=== PATIENT | female | born 1960 | race Caucasian/White ===

== ENCOUNTER 2018-11-30 14:15 | Day surgery (SDC) | payer OTHER ==
--- NOTE | 2018-11-22 23:30 | PREOPHP ---
DATE OF ADMISSION: 11/30/2018 The patient is coming on Monday, the , for a D and C with hysteroscopy. HISTORY OF PRESENT ILLNESS: This is a 58-year-old female, 5, para 4 with abortions 1. This patient was referred to me recently for vaginal bleeding, spotting, pelvic pressure, pelvic pain, hyp ertensive with no diabetes, with vaginal dryness and history of depression. This patient was evaluat ed and was advised for a fractional D and C and hysteroscopy for the possibility of endometrial cance r due to morbid obesity and a thick endometrium in the ultrasound. PAST MEDICAL HISTORY: The patient has a history of an umbilical hernia. She had a lap ryder. She h ad a breast biopsy which was negative. MEDICATIONS: She is on: 1. Hydrochlorothiazide. 2. Celexa. 3. Lisinopril. 4. Lopid. 5. Valtrex. 6. Naproxen. 7. Vitamins. DIAGNOSTIC STUDIES: The patient's Pap smear was normal and the ultrasound revealed that the uterus w as heterogeneous with fibroids, and there was endometrium that was normal and ovaries that were not v isualized. REVIEW OF SYSTEMS: Negative for cardiovascular problem except for hypertension. Lung disease negati ve. GI negative. Endocrine disease negative. No other pertinent findings in the review of systems. ALLERGIES: SHE IS NOT ALLERGIC TO ANY MEDICATIONS. SOCIAL HISTORY: She does not drink or smoke. No history of drugs. FAMILY HISTORY: Hypertension, heart attacks and diabetes. PHYSICAL EXAMINATION: VITAL SIGNS: The patient's vital signs are stable. The blood pressure is 120/80, pulse is 80, respi rations 16. She is 4 feet 11 inches. Her weight is 223 pounds. HEAD AND NECK: Normal. BREASTS: Soft, nontender. No masses. CHEST: Clear. HEART: Normal sinus rhythm. BACK: Normal. ABDOMEN: Soft. GENITALIA: With atrophy. Uterus retroverted, flexed, with fibroids. The adnexa are negative. RECTAL: Normal. EXTREMITIES: Normal. DIAGNOSES: 1. Postmenopausal bleeding. 2. Possible endometrial hyperplasia. 3. Morbid obesity. 4. Rule out malignancy. PLAN: She is undergoing a fractional D and C with hysteroscopy, due to postmenopausal bleeding, to r ule out malignancy. She has been advised of the possible risks and possible complications of the pro cedure with her alternatives and options. Written information was provided. She had no more questio ns and agreed to go ahead with the procedure with full understanding and no more questions. Dictated By: JENNIFER MORAN/NTS Conf#: [id number] DID#: [id number]
[2018-11-29 12:21] VITALS: BMI 44.9
[~2018-11-30] VITALS: Ht 160 cm; Wt 103.5 kg
[2018-11-30] VITALS (13 sets, daily range): BP systolic 111–185; BP diastolic 65–94; PULSE 76–82; RESP 14–24; Ht 160 cm; Wt 103.5 kg
[~2018-11-30 14:15] MED LIST: DESFLURANE 15 MIN ONE
[2018-11-30] MEDS ORDERED: DEXTROSE 5%-0.9% NACL 1,000 ML IV SCH (15:00)
[2018-11-30] MEDS ORDERED: CEFAZOLIN 2 GM/50 ML (PMX) 50 ML IVPB ONE (15:00)
[2018-11-30] MEDS ORDERED: LACTATED RINGER'S 1,000 ML IV SCH (15:16)
[2018-11-30] MEDS ORDERED: LORA10TA3 PO (15:26)
[2018-11-30] MEDS ORDERED: BEN25 PO (15:26)
[2018-11-30] MEDS ORDERED: FLUT9.9S NASAL (15:26)
--- NOTE | 2018-11-30 15:40 | PREAC ---
Date/Time of Note Date/Time of Note DATE: 11/30/18 TIME: 15:37 Anesthesia Eval and Record Evaluation Time Pre-Procedure Interview DATE: 11/30/18 TIME: 15:37 Age 58 Sex female NPO: 8 hrs Preoperative diagnosis fibroids uterus Planned procedure HYSTEROSCOPY D&C Past Medical History Past Medical History: Includes Cardio: HTN, Dyslipidemia GI: Morbid obesity Psych: Depression Surgery & Anesthesia Issues No known issue Meds Anticoagulation: No Beta Ayleen within 24 hr: No Reason Beta Ayleen not given: Pt. not on B-Ayleen Reported Medications Loratadine* (Loratadine*) 10 Mg Tablet, 10 MG PO DAILY, #30 TAB 11/30/18 Diphenhydramine Hcl* (Benadryl*) 25 Mg Cap, 25 MG PO Q6H PRN for ITCHING, CAP 11/30/18 Fluticasone Propionate (Flonase Allergy Relief) 9.9 Ml [place].susp, 2 SPRAY NASAL DAILY, #1 BOTTLE TO EACH NOSTRIL 11/30/18 Current Medications Dextrose/Sodium Chloride 1,000 ml @ 12.5 mls/hr Q24H IV ; Start 11/30/18 at 15:00; Stop 12/03/18 at 22:59 Lactated Ringer's 1,000 ml @ 0 mls/hr Q0M IV Last administered on 11/30/18at 15:27; Admin Dose 125 MLS/HR; Start 11/30/18 at 15:16 Meds reviewed: Yes Allergies Coded Allergies: No Known Allergy (Unverified , 11/29/18) Allergies Reviewed: Yes Labs/Studies Labs Reviewed: Reviewed by anesthesiologist test: N/A Studies: ECG, CXR Pre-procedure Exam Last vitals Vital Signs Date Temp Pulse Resp B/P (MAP) Pulse Ox O2 O2 Flow FiO2 Time Delivery Rate 11/30/18 98.7 80 18 138/77 95 Room Air 15:19 (97) Airway: Adequate mouth opening Mallampati: Mallampati II Teeth: Normal Lung: Normal Heart: Normal ASA Physical Status ASA physical status: 2 Emergency: None Planned Anesthetic General/MAC: ETT Pre-operative Attestations Prior to commencing anesthesia and surgery, the patient was re-evaluated, there was verification of: *The patient's identity *The results of appropriate recent lab work and preoperative vital signs *The above evaluation not changing prior to induction *Anesthetic plan, risk benefits, alternative and complications discussed with patient/family; questions answered; patient/family understands, accepts and wishes to proceed. ALFONSO RUTH November 30, 2018 15:40
[2018-11-30] MEDS ORDERED: ALBUTEROL 0.083% (NEB) 2.5 MG/3 ML AMP HHN PRN (16:30)
[2018-11-30] MEDS ORDERED: ONDANSETRON 4 MG INJ IV PRN (16:30)
[2018-11-30] MEDS ORDERED: DIPHENHYDRAMINE 50 MG INJ IV PRN (16:30)
[2018-11-30] MEDS ORDERED: MEPERIDINE 25 MG INJ IV PRN (16:30)
[2018-11-30] MEDS ORDERED: FENTAnyl 50 MCG/ML VIAL IV PRN ×2 (16:30)
[2018-11-30] MEDS ORDERED: HYDROmorphONE 1 MG/5 ML IV SYRINGE IV PRN ×3 (16:30)
[2018-11-30] MEDS ORDERED: METOCLOPRAMIDE 10 MG INJ IV PRN (16:30)
--- NOTE | 2018-11-30 17:06 | HPN ---
Date/Time of Note Date/Time of Note DATE: 11/30/18 TIME: 17:06 Interval H&P Admission Note Pt. seen H&P reviewed: No system changes JENNIFER ROWE MD November 30, 2018 17:06
[2018-11-30] MEDS ORDERED: FENTAnyl 50 MCG/ML VIAL ONE (17:16)
[2018-11-30] MEDS ORDERED: GEMF600T8 PO (17:29)
[2018-11-30] MEDS ORDERED: CHOL100062 PO (17:29)
[2018-11-30] MEDS ORDERED: AMLO-147 PO (17:29)
[2018-11-30] MEDS ORDERED: CITA40TA6 PO (17:29)
[2018-11-30] MEDS ORDERED: SUCCINYLCHOLINE CHLORIDE 100 MG/5 ML SYG IV ONE (17:54)
[2018-11-30] MEDS ORDERED: PROPOFOL 20 ML ONE (17:54)
[2018-11-30] MEDS ORDERED: ROCURONIUM 50 MG INJ ONE (17:54)
[2018-11-30] MEDS ORDERED: LIDOCAINE 100 MG SYRINGE ONE (17:54)
[2018-11-30] MEDS ORDERED: SUGAMMADEX SODIUM 200 MG/2 ML VIAL IV ONE (17:54)
[2018-11-30] MEDS ORDERED: CEFAZOLIN 1 GM INJ ONE (17:54)
--- NOTE | 2018-11-30 18:03 | SIPON ---
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
--- NOTE | 2018-11-30 18:04 | PD.PPDC ---
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
[2018-11-30] MEDS ORDERED: KETOROLAC 30 MG INJ IV PRN (18:30)
--- NOTE | 2018-11-30 22:10 | OPR ---
DATE OF OPERATION: 11/30/2018 PREOPERATIVE DIAGNOSES: Endometrial hyperplasia, postmenopausal bleeding, obesity, rule out malignan cy. POSTOPERATIVE DIAGNOSES: Endometrial hyperplasia, postmenopausal bleeding, obesity, rule out maligna ncy. OPERATION PERFORMED: Fractional dilation and curettage, hysteroscopic ablation of endometrium. ANESTHESIA: General. ANESTHESIOLOGIST: Dr. Staley. COMPLICATIONS: None. PROCEDURE: The patient was given general anesthesia, placed in the lithotomy position. The perineal and vaginal area were prepped and draped. Examination under anesthesia revealed that the uterus was with an old fibroid, retroverted about 8 weeks' size of a . Adnexa were nonpalpable. The vaginal speculum was applied. The vagina was very atrophic. The cervix was small. The cervix was s craped with the [employer] instrument. The uterus was sounded to 8 cm and dilated to #6 Hegar dilator . The TruClear hysteroscope was placed in and visualization of the area revealed that there was a ri ght hydrosalpinx on the right side. Normal tube on the left side. There were no fibroids in the cav ity. There was possible polyps and thick endometrial lining posterior to the wall of the uterus that was shaved with the trochlear ablation instrument. The ablation was done anteriorly, posteriorly an d laterally and on the fundus area and the loss of the fluid was about 1300. The procedure was finis hed. The patient tolerated the procedure well and left the OR awake and stable. Sponge counts, and instrument counts were correct. Intravenous antibiotics were given for prophylaxis. Dictated By: JENNIFER ROWE MD [facility]/NT[facility] Conf#: [id number] DID#: [id number] CC: JENNIFER ROWE MD;*EndCC*
--- NOTE | 2018-12-03 11:44 | PAC ---
Date/Time of Note Date/Time of Note DATE: 12/03/18 TIME: 11:44 Post-Anesthesia Notes Post-Anesthesia Note Last documented vital signs Vital Signs Date Temp Pulse Resp B/P (MAP) Pulse Ox O2 O2 Flow FiO2 Time Delivery Rate 11/30/18 78 19 131/82 93 Room Air 19:14 (98) 11/30/18 8.0 18:33 11/30/18 98.0 18:14 Activity: WNL Respiratory function: WNL Cardiovascular function: WNL Mental status: Baseline Pain reasonably controlled: Yes Hydration appropriate: Yes Nausea/Vomiting absent: Yes JIMI VALENTINE December 03, 2018 11:44
== END 2018-11-30 20:30 | disposition home or self-care (01) ==
LOC: SDS 14:15
PROVIDERS: ATTEND Obstetrics & Gynecology
DX: N85.00 Endometrial hyperplasia, unspecified (principal); D25.9 Leiomyoma of uterus, unspecified; I10 Essential (primary) hypertension
CPT/HCPCS: 58558; J0690; J1885; J2001; J3010; Z7512; Z7610; 88305